=== PATIENT | female | born 1960 | race Caucasian/White ===

== ENCOUNTER 2019-06-26 15:50 | Outpatient (CLI) | payer BC ==
[2019-06-26] MEDS ORDERED: AMIT25TA PO (16:22)
[2019-06-26] MEDS ORDERED: CELE200C PO (16:22)
[2019-06-26] MEDS ORDERED: TRAM50TA2 PO (16:22)
[2019-06-26] MEDS ORDERED: SUMA50TA4 PO (16:22)
[2019-06-26] MEDS ORDERED: LEVO25TA4 PO (16:22)
[2019-06-26 16:35] LABS: BASOPHILS % (AUTO) 1 % (0-1); EOSINOPHILS # (AUTO) 0.41 x10^3/uL (0-0.4); EOSINOPHILS % (AUTO) 5 % (1-7); LYMPHOCYTES # (AUTO) 2.88 x10^3/uL (1-3.4); LYMPHOCYTES % (AUTO) 34 % (22-44); MD NO; MEAN CORPUSCULAR HEMOGLOBIN 28.2 pg (27.0-34.8); MEAN CORPUSCULAR VOLUME 88.3 fL (80-100); MEAN PLATELET VOLUME 9.6 fL (7.4-10.4); MONOCYTES # (AUTO) 0.61 x10^3/uL (0.2-0.8); MONOCYTES % (AUTO) 7 % (2-9); NEUTROPHILS # (AUTO) 4.43 x10^3/uL (1.8-6.8); NEUTROPHILS % (AUTO) 53 % (42-75); PLATELET COUNT 229 x10^3/uL (130-400); RED BLOOD COUNT 4.98 x10^6/uL (3.82-5.3); RED CELL DISTRIBUTION WIDTH 15.9 % (9.6-15.2)
[2019-06-26 16:47] LABS: ANION GAP 4 mmol/L (5-15); CALCIUM 9.1 mg/dL (8.5-10.1); CHLORIDE 109 mmol/L (98-107); CREATININE 0.73 mg/dL (0.55-1.02)
== END 2019-06-26 23:59 | disposition home or self-care (01) ==
LOC: STAR 15:50 → UNMERGE 15:50 → MERGE 15:50 → STAR 23:59
PROVIDERS: ATTEND Orthopaedic Surgery
DX: Z01.818 Encounter for other preprocedural examination (principal); M17.0 Bilateral primary osteoarthritis of knee; Z87.891 Personal history of nicotine dependence
CPT/HCPCS: 36415; 80048; 85025; 87081; 93005

== ENCOUNTER 2019-07-07 06:26 | Inpatient (IN) | payer BC ==
[~2019-07-07] VITALS: Ht 149.9 cm; Wt 114.3 kg
[~2019-07-07 06:26] MED LIST: AMIT25TA PO; CELE200C PO; LEVO25TA4 PO; SUMA50TA4 PO; TRAM50TA2 PO
[2019-07-07] MEDS ORDERED: VANCOMYCIN 1,000 MG ONE (06:33)
[2019-07-07] MEDS ORDERED: TRANEXAMIC ACID 100 MG/ML, 10ML ONE ×2 (06:33)
[2019-07-07] MEDS ORDERED: KETOROLAC 60 MG/2 ML ONE (06:33)
[2019-07-07] MEDS ORDERED: SODIUM CHLORIDE 0.9% 50 ML ONE (06:33)
[2019-07-07] MEDS ORDERED: EPINEPHRINE 1 MG/ML, 1ML ONE (06:34)
[2019-07-07] MEDS ORDERED: ROPIvacaine/PF 0.2%, 20 ML ONE (06:36)
[2019-07-07] MEDS ORDERED: LACTATED RINGERS 1,000 ML IV SCH (07:01)
[2019-07-07] MEDS ORDERED: LIDOCAINE-MPF 1%, 2ML INFIL ONE (07:30)
[2019-07-07] MEDS ORDERED: FLU VACC QS2019-20 36MOS UP/PF 0.5 ML IM-VACC ONE (07:30)
[2019-07-07] MEDS ORDERED: GABAPENTIN 300 MG CAPSULE ONE ×2 (07:47)
[2019-07-07] MEDS ORDERED: ACETAMINOPHEN 500 MG TABLET ONE ×2 (07:47)
[2019-07-07] MEDS ORDERED: SCOPOLAMINE PATCH, 1.5MG PATCH.TD72 TD ONE ×2 (07:47)
[2019-07-07] MEDS ORDERED: MIDAZOLAM 1 MG/ML, 2ML ONE ×3 (08:00→10:41)
[2019-07-07] MEDS ORDERED: FENTANYL PF 250 MCG/5ML ONE ×2 (08:00→09:44)
[2019-07-07] MEDS ORDERED: DEXAMETHASONE 4 MG/ML, 1ML ONE (08:45)
[2019-07-07] MEDS ORDERED: ONDANSETRON 2MG/ML, 2ML ONE (08:45)
[2019-07-07] MEDS ORDERED: CEFAZOLIN 1,000 MG ONE (08:45)
[2019-07-07] MEDS ORDERED: EPHEDRINE 50 MG/ML, 1ML ONE (08:45)
[2019-07-07] MEDS ORDERED: ROCURONIUM 10MG/ML,5ML ONE (08:45)
[2019-07-07] MEDS ORDERED: MEPERIDINE/PF 25MG/0.5ML IVPush PRN (09:30)
[2019-07-07] MEDS ORDERED: PROMETHAZINE 25 MG/ML, 1ML IV PRN (09:30)
[2019-07-07] MEDS ORDERED: hydrALAzine 20 MG/ML, 1ML IV PRN (09:30)
[2019-07-07] MEDS ORDERED: LABETALOL 5MG/ML, 20ML IV PRN (09:30)
[2019-07-07] MEDS ORDERED: OXYcodone 5 MG/5 ML ORAL.SOL UDC PO PRN (09:30)
[2019-07-07] MEDS ORDERED: ALBUTEROL SULFATE 2.5 MG/3 ML NPPB PRN (09:30)
[2019-07-07] MEDS ORDERED: FENTANYL PF 100 MCG/2ML IV PRN (09:30)
[2019-07-07] MEDS ORDERED: HYDROmorphone 2 MG/ML, 1ML IVPush PRN (09:30)
[2019-07-07] MEDS ORDERED: DIAZEPAM 5 MG/ML, 2ML IVPush PRN (09:30)
[2019-07-07] MEDS ORDERED: PROPOFOL 50 ML ONE (10:26)
[2019-07-07] MEDS ORDERED: MIDAZOLAM 1 MG/ML, 2ML IVPush PRN (12:30)
[2019-07-07] MEDS ORDERED: EPINEPHRINE 1 MG in SODIUM CHLORIDE 0.9% 249 ML IV PRN (13:11)
[2019-07-07] MEDS ORDERED: ONDANSETRON 2MG/ML, 2ML IVPush PRN (13:30)
[2019-07-07] MEDS ORDERED: DEXTROSE 4 GM TAB.CHEW PO PRN (13:30)
[2019-07-07] MEDS ORDERED: BISACODYL 10 MG SUPP PR PRN (13:30)
[2019-07-07] MEDS ORDERED: LACTULOSE 20 GM/30 ML UDC NG PRN (13:30)
[2019-07-07] MEDS: ALBUTEROL SULFATE 2.5 MG/3 ML INLINE SCH ×3 (13:30→22:37)
[2019-07-07] MEDS ORDERED: GLUCAGON 1 MG IM PRN (13:30)
[2019-07-07] MEDS ORDERED: LIDOCAINE-MPF 1%, 2ML ENDO PRN (13:30)
[2019-07-07] MEDS ORDERED: ONDANSETRON ODT 4 MG PO PRN (13:30)
[2019-07-07] MEDS ORDERED: DEXTROSE 50%, 50ML SYRINGE IVPush PRN (13:30)
[2019-07-07] MEDS ORDERED: SENNA 176 MG/5 ML ORAL SOL NG PRN (13:30)
[2019-07-07] MEDS ORDERED: morphine SULFATE 10 MG/ML, 1ML IVPush PRN (13:30)
[2019-07-07] MEDS ORDERED: PHARMACY MAY ADJ FOR RENAL FX MC SCH (13:30)
[2019-07-07] MEDS ORDERED: LABETALOL 5MG/ML, 20ML IVPush PRN (13:30)
[2019-07-07 13:58] LABS: BASOPHILS # (AUTO) 0.03 x10^3/uL (0-0.1); BASOPHILS % (AUTO) 0 % (0-1); EOSINOPHILS # (AUTO) 0.05 x10^3/uL (0-0.4); EOSINOPHILS % (AUTO) 0 % (1-7); LYMPHOCYTES # (AUTO) 1.15 x10^3/uL (1-3.4); LYMPHOCYTES % (AUTO) 9 % (22-44); MD NO; MEAN CORPUSCULAR HEMOGLOBIN 28.7 pg (27.0-34.8); MEAN CORPUSCULAR HGB CONC 32.3 g/dL (32.4-35.8); MEAN CORPUSCULAR VOLUME 88.9 fL (80-100); MEAN PLATELET VOLUME 9.9 fL (7.4-10.4); MONOCYTES # (AUTO) 0.14 x10^3/uL (0.2-0.8); MONOCYTES % (AUTO) 1 % (2-9); NEUTROPHILS # (AUTO) 11.49 x10^3/uL (1.8-6.8); NEUTROPHILS % (AUTO) 89 % (42-75); PLATELET COUNT 212 x10^3/uL (130-400); RED BLOOD COUNT 4.53 x10^6/uL (3.82-5.3); RED CELL DISTRIBUTION WIDTH 16.4 % (9.6-15.2)
[2019-07-07 14:05] LABS: INTERNATIONAL NORMALIZED RATIO 1.03 (0.93-1.1); PROTHROMBIN TIME 10.8 Seconds (9.6-11.5)
[2019-07-07 14:13] LABS: TROPONIN I < 0.015 ng/mL (0.000-0.045)
[2019-07-07] MEDS: SODIUM CHLORIDE 0.9% 1,000 ML IV SCH (15:13)
[2019-07-07] MEDS: CEFAZOLIN PMX 2GM/50ML 50 ML IVPB SCH ×2 (15:13→22:03)
[2019-07-07] MEDS: PROPOFOL 100 ML IV PRN ×2 (15:18→19:31)
[2019-07-07] MEDS: ENOXAPARIN 40 MG/0.4 ML SQ SCH (16:19)
[2019-07-07 16:30] LABS: ANION GAP 13 mmol/L (5-15); CALCIUM 8.4 mg/dL (8.5-10.1); CHLORIDE 108 mmol/L (98-107); CREATININE 0.81 mg/dL (0.55-1.02); TRIGLYCERIDES 125 mg/dL (50-200)
[2019-07-07 16:33] LABS: TROPONIN I < 0.015 ng/mL (0.000-0.045)
[2019-07-07] MEDS ORDERED: OMNIPAQUE 350 MG/ML, 100ML BOTTLE ONE (17:15)
[2019-07-07] MEDS ORDERED: ELECTROLYTE REPLACEMENT PROTOCOL CRITICAL CARE ONLY MC PRN (18:00)
[2019-07-07] MEDS ORDERED: POTASSIUM CHLORIDE 30 MEQ in SODIUM CHLORIDE 0.9% 500 ML IV ONE (18:04)
[2019-07-07] MEDS ORDERED: MAGNESIUM SULFATE PMX 2GM/50ML 50 ML IVPB ONE (18:30)
[2019-07-07 20:12] LABS: TROPONIN I < 0.015 ng/mL (0.000-0.045)
[2019-07-07] MEDS: SODIUM CHLORIDE FLUSH 10ML SYR IVF SCH (22:03)
[2019-07-08] MEDS: PROPOFOL 100 ML IV PRN ×2 (01:52→05:07)
[2019-07-08] MEDS: SODIUM CHLORIDE 0.9% 1,000 ML IV SCH (01:53)
[2019-07-08] MEDS: ALBUTEROL SULFATE 2.5 MG/3 ML INLINE SCH ×2 (02:30→06:28)
[2019-07-08] MEDS: ACETAMINOPHEN 325 MG TABLET PO PRN ×2 (04:01→20:22)
[2019-07-08] MEDS: OXYcodone IR 5MG TABLET PO PRN ×6 (04:02→22:48)
[2019-07-08 04:52] LABS: BASOPHILS # (AUTO) 0.06 x10^3/uL (0-0.1); BASOPHILS % (AUTO) 0 % (0-1); EOSINOPHILS % (AUTO) 0 % (1-7); LYMPHOCYTES # (AUTO) 1.25 x10^3/uL (1-3.4); LYMPHOCYTES % (AUTO) 9 % (22-44); MD NO; MEAN CORPUSCULAR HEMOGLOBIN 28.8 pg (27.0-34.8); MEAN CORPUSCULAR HGB CONC 32.5 g/dL (32.4-35.8); MEAN CORPUSCULAR VOLUME 88.6 fL (80-100); MEAN PLATELET VOLUME 9.7 fL (7.4-10.4); MONOCYTES # (AUTO) 1.08 x10^3/uL (0.2-0.8); MONOCYTES % (AUTO) 8 % (2-9); NEUTROPHILS # (AUTO) 11.01 x10^3/uL (1.8-6.8); NEUTROPHILS % (AUTO) 82 % (42-75); PLATELET COUNT 191 x10^3/uL (130-400); RED BLOOD COUNT 4.08 x10^6/uL (3.82-5.3); RED CELL DISTRIBUTION WIDTH 16.3 % (9.6-15.2)
[2019-07-08 04:59] LABS: ALANINE AMINOTRANSFERASE 23 U/L (12-78); ALBUMIN 2.8 g/dL (3.4-5.0); ANION GAP 6 mmol/L (5-15); CHLORIDE 114 mmol/L (98-107); CREATININE 0.68 mg/dL (0.55-1.02)
[2019-07-08] MEDS: LEVOTHYROXINE 50 MCG TABLET PO SCH (05:03)
[2019-07-08 05:09] LABS: ALKALINE PHOSPHATASE 61 U/L (45-117); BILIRUBIN,TOTAL 0.4 mg/dL (0.2-1.0); TOTAL PROTEIN 5.8 g/dL (6.4-8.2)
[2019-07-08] MEDS: CEFAZOLIN PMX 2GM/50ML 50 ML IVPB SCH (07:22)
[2019-07-08] MEDS: SODIUM CHLORIDE FLUSH 10ML SYR IVF SCH ×2 (07:23→20:23)
[2019-07-08 16:19] VITALS: BP 111/70
[2019-07-08] MEDS: ENOXAPARIN 40 MG/0.4 ML SQ SCH (17:02)
[2019-07-08 18:56] VITALS: BP 113/70
[2019-07-08] MEDS: SENNA/DOCUSATE TABLET NG PRN (20:22)
[2019-07-09 00:47] VITALS: BP 97/56
[2019-07-09] MEDS: OXYcodone IR 5MG TABLET PO PRN ×4 (03:25→20:33)
[2019-07-09 04:51] LABS: BASOPHILS # (AUTO) 0.09 x10^3/uL (0-0.1); BASOPHILS % (AUTO) 1 % (0-1); EOSINOPHILS % (AUTO) 2 % (1-7); LYMPHOCYTES # (AUTO) 3.15 x10^3/uL (1-3.4); LYMPHOCYTES % (AUTO) 29 % (22-44); MD NO; MEAN CORPUSCULAR HEMOGLOBIN 28.3 pg (27.0-34.8); MEAN CORPUSCULAR HGB CONC 31.4 g/dL (32.4-35.8); MEAN CORPUSCULAR VOLUME 90.2 fL (80-100); MEAN PLATELET VOLUME 9.9 fL (7.4-10.4); MONOCYTES # (AUTO) 1.12 x10^3/uL (0.2-0.8); MONOCYTES % (AUTO) 10 % (2-9); NEUTROPHILS % (AUTO) 58 % (42-75); PLATELET COUNT 197 x10^3/uL (130-400); RED BLOOD COUNT 4.04 x10^6/uL (3.82-5.3); RED CELL DISTRIBUTION WIDTH 16.9 % (9.6-15.2)
[2019-07-09 05:02] LABS: ANION GAP 4 mmol/L (5-15); CALCIUM 8.7 mg/dL (8.5-10.1); CHLORIDE 110 mmol/L (98-107)
[2019-07-09 05:03] LABS: CREATININE 0.74 mg/dL (0.55-1.02)
[2019-07-09] MEDS: LEVOTHYROXINE 50 MCG TABLET PO SCH (06:13)
[2019-07-09 07:46] VITALS: BP 110/77
[2019-07-09] MEDS: SENNA/DOCUSATE TABLET NG PRN (10:25)
[2019-07-09] MEDS: ACETAMINOPHEN 325 MG TABLET PO PRN ×3 (10:25→20:33)
[2019-07-09] MEDS: SODIUM CHLORIDE FLUSH 10ML SYR IVF SCH ×2 (10:27→20:24)
[2019-07-09 13:05] VITALS: BP 132/79
[2019-07-09] MEDS: ENOXAPARIN 40 MG/0.4 ML SQ SCH (16:28)
[2019-07-09 19:00] VITALS: BP 111/70
[2019-07-10 01:09] VITALS: BP 107/70
[2019-07-10] MEDS: ACETAMINOPHEN 325 MG TABLET PO PRN ×3 (03:04→18:30)
[2019-07-10] MEDS: OXYcodone IR 5MG TABLET PO PRN ×5 (03:05→18:31)
[2019-07-10 05:47] LABS: ANION GAP 2 mmol/L (5-15); CALCIUM 8.8 mg/dL (8.5-10.1); CHLORIDE 106 mmol/L (98-107)
[2019-07-10 05:48] LABS: BASOPHILS # (AUTO) 0.09 x10^3/uL (0-0.1); BASOPHILS % (AUTO) 1 % (0-1); EOSINOPHILS # (AUTO) 0.57 x10^3/uL (0-0.4); EOSINOPHILS % (AUTO) 7 % (1-7); LYMPHOCYTES # (AUTO) 2.64 x10^3/uL (1-3.4); LYMPHOCYTES % (AUTO) 31 % (22-44); MD NO; MEAN CORPUSCULAR HEMOGLOBIN 28.9 pg (27.0-34.8); MEAN CORPUSCULAR HGB CONC 32.1 g/dL (32.4-35.8); MEAN CORPUSCULAR VOLUME 89.8 fL (80-100); MEAN PLATELET VOLUME 10.6 fL (7.4-10.4); MONOCYTES # (AUTO) 0.95 x10^3/uL (0.2-0.8); MONOCYTES % (AUTO) 11 % (2-9); NEUTROPHILS % (AUTO) 51 % (42-75); PLATELET COUNT 177 x10^3/uL (130-400); RED BLOOD COUNT 3.65 x10^6/uL (3.82-5.3); RED CELL DISTRIBUTION WIDTH 16.6 % (9.6-15.2)
[2019-07-10 05:49] LABS: CREATININE 0.62 mg/dL (0.55-1.02)
[2019-07-10] MEDS: LEVOTHYROXINE 50 MCG TABLET PO SCH (06:37)
[2019-07-10 08:11] VITALS: BP 130/82
[2019-07-10] MEDS: SODIUM CHLORIDE FLUSH 10ML SYR IVF SCH ×2 (08:26→21:29)
[2019-07-10] MEDS ORDERED: PNEUMOCOCCAL 23 VACCINE IM-VACC ONE (13:00)
[2019-07-10] MEDS ORDERED: FLU VACC QS2019-20 36MOS UP/PF 0.5 ML IM-VACC ONE (13:00)
[2019-07-10] MEDS ORDERED: ALBUTEROL/IPRATROPIUM 2.5MG/0.5MG, 3 ML ONE (13:14)
[2019-07-10] MEDS ORDERED: ALBUTEROL SULFATE 2.5 MG/3 ML NPPB PRN (13:30)
[2019-07-10 14:46] VITALS: BP 112/74
[2019-07-10] MEDS ORDERED: OXYC5TAB3 PO (16:33)
[2019-07-10] MEDS ORDERED: RIVA10TA2 PO (16:34)
[2019-07-10] MEDS: ENOXAPARIN 40 MG/0.4 ML SQ SCH (17:20)
[2019-07-10 21:12] VITALS: BP 120/77
[2019-07-11 00:26] VITALS: BP 104/71
[2019-07-11] MEDS: OXYcodone IR 5MG TABLET PO PRN ×4 (03:10→16:05)
[2019-07-11] MEDS: LEVOTHYROXINE 50 MCG TABLET PO SCH (05:24)
[2019-07-11 05:33] LABS: BASOPHILS # (AUTO) 0.08 x10^3/uL (0-0.1); BASOPHILS % (AUTO) 1 % (0-1); EOSINOPHILS # (AUTO) 0.62 x10^3/uL (0-0.4); EOSINOPHILS % (AUTO) 9 % (1-7); LYMPHOCYTES % (AUTO) 26 % (22-44); MD NO; MEAN CORPUSCULAR HEMOGLOBIN 28.6 pg (27.0-34.8); MEAN CORPUSCULAR HGB CONC 31.9 g/dL (32.4-35.8); MEAN CORPUSCULAR VOLUME 89.8 fL (80-100); MEAN PLATELET VOLUME 10.3 fL (7.4-10.4); MONOCYTES # (AUTO) 0.67 x10^3/uL (0.2-0.8); MONOCYTES % (AUTO) 9 % (2-9); NEUTROPHILS # (AUTO) 3.92 x10^3/uL (1.8-6.8); NEUTROPHILS % (AUTO) 55 % (42-75); PLATELET COUNT 208 x10^3/uL (130-400); RED BLOOD COUNT 3.67 x10^6/uL (3.82-5.3); RED CELL DISTRIBUTION WIDTH 16.3 % (9.6-15.2)
[2019-07-11 05:43] LABS: ANION GAP 3 mmol/L (5-15); CALCIUM 8.8 mg/dL (8.5-10.1); CHLORIDE 107 mmol/L (98-107); CREATININE 0.63 mg/dL (0.55-1.02)
[2019-07-11 07:20] VITALS: BP 104/68
[2019-07-11] MEDS: SODIUM CHLORIDE FLUSH 10ML SYR IVF SCH (09:38)
[2019-07-11] MEDS: ACETAMINOPHEN 325 MG TABLET PO PRN (11:21)
[2019-07-11 12:10] VITALS: BP 118/75
[2019-07-11] MEDS: SENNA/DOCUSATE TABLET NG PRN (14:50)
[2019-07-11] MEDS: ENOXAPARIN 40 MG/0.4 ML SQ SCH (16:05)
== END 2019-07-11 16:22 | disposition home health service (06) | DRG 469 ==
LOC: OUT 06:26 → EDBD 08:45 → MERGE 08:45 → ICU 12:35 → OUT 13:11 → ICU 13:11 → 4NE 07-08 16:22
PROVIDERS: ADMIT Orthopaedic Surgery; ATTEND Internal Medicine
PROC: 03HY32Z Insertion of Monitoring Device into Upper Artery, Percutaneous Approach (ICD-10-PCS; 2019-07-07)
PROC: 3E0T3BZ Introduction of Anesthetic Agent into Peripheral Nerves and Plexi, Percutaneous Approach (ICD-10-PCS; 2019-07-07)
PROC: 0SRC069 Replacement of Right Knee Joint with Oxidized Zirconium on Polyethylene Synthetic Substitute, Cemented, Open Approach (ICD-10-PCS; principal; 2019-07-07 08:45)
DX: M17.11 Unilateral primary osteoarthritis, right knee (principal); J96.21 Acute and chronic respiratory failure with hypoxia; Z68.43 Body mass index [BMI] 50.0-59.9, adult; T88.2XXA Shock due to anesthesia, initial encounter; E66.2 Morbid (severe) obesity with alveolar hypoventilation; Z99.11 Dependence on respirator [ventilator] status; E03.9 Hypothyroidism, unspecified; D72.828 Other elevated white blood cell count; G43.909 Migraine, unspecified, not intractable, without status migrainosus; I51.7 Cardiomegaly; T41.45XA Adverse effect of unspecified anesthetic, initial encounter; I95.2 Hypotension due to drugs; Y92.89 Other specified places as the place of occurrence of the external cause; Z87.891 Personal history of nicotine dependence
CPT/HCPCS: 36415; 36600; 73560; J7613; 71045; 71275; 80048; 80053; 82533; 82803; 82962; 83605; 83735; 84100; 84132; 84443; 84478; 84484; 85025; 85610; 87070; 87081; 87205; 90686; 90732; 93306; 93970; 94002; 94003; 94150; 94640; C1713; G0378; J0171; J0690; J1100; J1650; J1885; J2250; J2405; J2704; J2795; J3010; J3370; J3480; Q9967; C1776; J3475; J7030; J7040; J7120

== ENCOUNTER → 2019-08-12 | Outpatient (CLI) | payer BC ==
[~2019-08-12] MED LIST changes: +OXYC5TAB3 PO; +RIVA10TA2 PO
== END | disposition home or self-care (01) ==
LOC: CFH 16:19
PROVIDERS: ATTEND Internal Medicine
DX: J40 Bronchitis, not specified as acute or chronic (principal)
CPT/HCPCS: 71046

== ENCOUNTER → 2020-04-07 | Outpatient (CLI) | payer BC ==
[~2020-04-07] MED LIST changes: +OXYB10TA26 PO
== END | disposition home or self-care (01) ==
LOC: STAR 12:35
PROVIDERS: ATTEND Orthopaedic Surgery
DX: Z01.818 Encounter for other preprocedural examination (principal); M75.122 Complete rotator cuff tear or rupture of left shoulder, not specified as traumatic; M75.42 Impingement syndrome of left shoulder; M25.512 Pain in left shoulder; R00.1 Bradycardia, unspecified
CPT/HCPCS: 93005

== ENCOUNTER → 2020-04-12 | Outpatient (CLI) | payer BC | END | disposition home or self-care (01) | LOC: STAR 15:24 | PROVIDERS: ATTEND Anesthesiology | DX: Z01.812 Encounter for preprocedural laboratory examination (principal); Z20.828 Contact with and (suspected) exposure to other viral communicable diseases | CPT/HCPCS: 36415; 87635 ==

== ENCOUNTER 2020-04-15 11:29 | Day surgery (SDC) | payer BC ==
[~2020-04-15] VITALS: Ht 149.9 cm; Wt 103.0 kg
[2020-04-15] MEDS ORDERED: LACTATED RINGERS 1,000 ML IV SCH (11:43)
[2020-04-15] MEDS ORDERED: CHLORHEXIDINE 15 ML UDC MM STA (11:44)
[2020-04-15 12:01] VITALS: BP 129/85
[2020-04-15] MEDS ORDERED: LIDOCAINE 1%-EPI 1:100K, 20ML ONE (12:24)
[2020-04-15] MEDS ORDERED: BUPIVACAINE/EPI 0.5% 1:200K ONE (12:24)
[2020-04-15] MEDS ORDERED: FENTANYL PF 100 MCG/2ML ONE (12:24)
[2020-04-15] MEDS ORDERED: MIDAZOLAM 1 MG/ML, 2ML ONE (12:25)
[2020-04-15] MEDS ORDERED: PROPOFOL 10 MG/ML, 20ML ONE (12:43)
[2020-04-15] MEDS ORDERED: SUCCINYLCHOLINE 20 MG/ML, 10ML ONE (12:44)
[2020-04-15] MEDS ORDERED: ONDANSETRON 2MG/ML, 2ML ONE (12:46)
[2020-04-15] MEDS ORDERED: DEXAMETHASONE 4 MG/ML, 1ML ONE ×3 (12:46→12:55)
[2020-04-15] MEDS ORDERED: CEFAZOLIN 1,000 MG ONE ×2 (12:46)
[2020-04-15] MEDS ORDERED: SUMATRIPTAN 50 MG TABLET PO PRN (13:00)
[2020-04-15] MEDS ORDERED: AMITRIPTYLINE 25 MG TABLET PO PRN (13:00)
[2020-04-15] MEDS ORDERED: FENTANYL PF 100 MCG/2ML IV PRN (13:30)
[2020-04-15] MEDS ORDERED: MEPERIDINE/PF 25MG/0.5ML IVPush PRN (13:30)
[2020-04-15] MEDS ORDERED: OXYcodone 5 MG/5 ML ORAL.SOL UDC PO PRN (13:30)
[2020-04-15] MEDS ORDERED: ONDANSETRON 2MG/ML, 2ML IVPush PRN (13:30)
[2020-04-15] MEDS ORDERED: ACETAMINOPHEN 325 MG TABLET PO PRN (13:30)
[2020-04-15] MEDS ORDERED: OXYcodone 5 MG/5 ML ORAL.SOL UDC ONE (14:24)
[2020-04-15] MEDS ORDERED: ALBUTEROL HFA 90 MCG/SPRAY INH PRN (15:00)
[2020-04-16] MEDS ORDERED: LEVOTHYROXINE 25 MCG TABLET PO SCH (09:00)
[2020-04-16] MEDS ORDERED: TEMPLATE NON-FORMULARY MED. (Oxybutynin Chloride** (Oxybutynin Chloride Er**) 10 MG) PO SCH (09:00)
== END 2020-04-15 16:30 | disposition home or self-care (01) ==
LOC: OUT 11:29
PROVIDERS: ATTEND Orthopaedic Surgery
DX: M75.102 Unspecified rotator cuff tear or rupture of left shoulder, not specified as traumatic (principal); M19.012 Primary osteoarthritis, left shoulder; M66.829 Spontaneous rupture of other tendons, unspecified upper arm; M65.812 Other synovitis and tenosynovitis, left shoulder; M24.112 Other articular cartilage disorders, left shoulder; M25.812 Other specified joint disorders, left shoulder; I10 Essential (primary) hypertension; E66.01 Morbid (severe) obesity due to excess calories; Z68.42 Body mass index [BMI] 45.0-49.9, adult; Z88.5 Allergy status to narcotic agent; Z88.8 Allergy status to other drugs, medicaments and biological substances; Z79.899 Other long term (current) drug therapy; Z79.01 Long term (current) use of anticoagulants; Z87.891 Personal history of nicotine dependence; Z72.89 Other problems related to lifestyle; Z98.890 Other specified postprocedural states; Z86.718 Personal history of other venous thrombosis and embolism; Z82.49 Family history of ischemic heart disease and other diseases of the circulatory system
CPT/HCPCS: 29823; 29824; 29826; 29827; 64415; C1713; J0330; J0690; J2250; J2405; J2704; J3010; J7120; J1100; J3490